=== PATIENT | female | born 1975 | race Caucasian/White ===

== ENCOUNTER → 2017-02-10 | Outpatient (CLI) | payer OTHER | LOC: RAD 12:40 | DX: R06.02 Shortness of breath (principal) ==

== ENCOUNTER → 2017-03-24 | Outpatient (CLI) | payer OTHER | LOC: CAT 08:15 | DX: K76.0 Fatty (change of) liver, not elsewhere classified (principal); R19.03 Right lower quadrant abdominal swelling, mass and lump ==